=== PATIENT | male | born 1970 | race African-American/Black ===

== ENCOUNTER 2023-02-21 09:28 | Emergency (ER) | payer MEDICAID, OTHER ==
[~2023-02-21] VITALS: Ht 172.7 cm; Wt 82.0 kg
[2023-02-21 09:30] VITALS: BP 158/97; PULSE 102; RESP 16; TEMP 98.8; O2SAT 99
[2023-02-21] MEDS ORDERED: TETANUS, DIPHTHERIA, PERTUSSIS VAC/PF 0.5ML (>10YR OLD) IM ONE (10:00)
[2023-02-21] MEDS ORDERED: CEPHALEXIN 250MG CAPSULE PO ONE (12:15)
[2023-02-21] MEDS ORDERED: CEPH500T MT (15:25)
== END 2023-02-21 17:42 | disposition home or self-care (01) ==
LOC: ER 09:28
DX: S02.85XA Fracture of orbit, unspecified, initial encounter for closed fracture (principal); G89.11 Acute pain due to trauma; I10 Essential (primary) hypertension; Y08.89XA Assault by other specified means, initial encounter; Y93.89 Activity, other specified; Y92.89 Other specified places as the place of occurrence of the external cause; Y99.8 Other external cause status
CPT/HCPCS: 70450; 70486; 90715; 90471; 99285; Z7610